=== PATIENT | male | born 1940 ===

== ENCOUNTER 2016-04-27 08:52 | Day surgery (SDC) | payer MEDICARE ==
[2016-04-24 12:06] VITALS: BMI 28.5
[2016-04-27 10:04] VITALS: O2SAT 100
[2016-04-27] MEDS ORDERED: Lidocaine 1% Inj (20ml) ONE (12:38)
[2016-04-27] MEDS ORDERED: Bupivacaine HCl 0.25% PF (10 ml) Inj ONE (12:38)
[2016-04-27] MEDS ORDERED: ceFAZolin IV 1 gm in Dextrose 50 ML IVPB ONE (12:38)
[2016-04-27] MEDS ORDERED: Lactated Ringer's 1,000 ML IV ONE (12:40)
[2016-04-27] MEDS ORDERED: Bacitracin Ointment 30 GM TUBE ONE (13:04)
--- NOTE | 2016-04-27 13:58 | OP ---
PROCEDURE DATE: 04/27/2016 PREOPERATIVE DIAGNOSIS: Necrotic mass of the index finger with ischemia and ulcer of the right middl e finger. POSTOPERATIVE DIAGNOSIS: Necrotic mass of the index finger with ischemia and ulcer of the right midd le finger. PROCEDURE PERFORMED: Excision of necrotic mass, right index finger and a debridement of ulcer of rig ht middle finger. SURGEON: Dr. Ware ANESTHESIA: General. ESTIMATED BLOOD LOSS: 40 mL. POSTOPERATIVE CONDITION: Stable. INDICATIONS FOR SURGERY: This is a 75-year-old male who presented with ischemic lesions of the right hand and taken to the OR for debridement and will undergo postoperative workup for embolic phenomena . PROCEDURE: Taken to the operating room, placed in the supine position. Local block ____ administere d to the index and middle fingers and the necrotic mass at the distal aspect of the middle finger was completely excised via elliptical incision and partial tissue transfer closure. The central portion of the wound was packed open with a gauze dressing. The middle finger was debrided and bleeding was controlled using the Bovie and an exposed digital vessel was repaired. The wound was irrigated with saline. The wounds were dressed sterilely. The patient tolerated procedure well, returned to [facility] in stable condition. Beto Ware MD cc: [id number] TT: 04/27/2016 13:58:05 sn
[2016-04-27 15:15] VITALS: BP 109/71; PULSE 69; RESP 15; TEMP 97.8
--- NOTE | 2016-05-03 23:11 | CARD ---
APPROVED REPORT EXAM: Two-dimensional and M-mode echocardiogram with Doppler and color Doppler. Other Information Quality : AverageRhythm : NSR INDICATION [facility] M-Mode DIMENSIONS RVDd1.48 (2.1-3.2cm)Left Atrium (MM)4.76 (2.5-4.0cm) IVSd0.90 (0.7-1.1cm)Aortic Root2.66 (2.2-3.7cm) LVDd5.66 (4.0-5.6cm)Aortic Cusp Exc.1.91 (1.5-2.0cm) PWd0.98 (0.7-1.1cm)FS (%) 37 % LVDs3.59 (2.0-3.8cm)LVEF (%)66 (>50%) Aortic Valve AoV Peak Yunqcuny661.0cm/Farooq Peak GR.9mmHg Mitral Valve MV E Iilzkerd67.5cm/sMV A Jplfaerf723.0cm/sE/A ratio0.7 TDI E/Lateral E'0.0E/Medial E'0.0 Tricuspid Valve TR Peak Patixhyr805sc/sTR Peak Gr.[id number] LEFT VENTRICLE The left ventricle is normal size. There is normal left ventricular wall thickness. Left ventricle systolic function is normal. The Ejection Fraction is 65-70%. There is normal LV segmental wall motion. Tissue Doppler imaging reveals abnormal left ventricular diastolic dysfunction. RIGHT VENTRICLE The right ventricle is normal size. There is normal right ventricular wall thickness. The right ventricular systolic function is normal. ATRIA The left atrium is mildly dilated. The right atrium size is normal. The interatrial septum is intact with no evidence for an atrial septal defect. AORTIC VALVE The aortic valve is normal in structure. No aortic regurgitation is present. There is no aortic valvular stenosis. There is no aortic valvular vegetation. MITRAL VALVE The mitral valve is normal in structure. There is no evidence of mitral valve prolapse. There is no mitral valve stenosis. Mitral regurgitation is mild. TRICUSPID VALVE The tricuspid valve is normal in structure. There is trace to mild tricuspid regurgitation. Right ventricular systolic pressure is estimated at 30-40 mmHg. There is mild pulmonary hypertension. There is no tricuspid valve prolapse or vegetation. There is no tricuspid valve stenosis. PULMONIC VALVE The pulmonic valve is not well visualized. There is no pulmonic valvular regurgitation. GREAT VESSELS The aortic root is normal in size. PERICARDIAL EFFUSION There is no significant pericardial effusion. <Conclusion> Left ventricle systolic function is normal. The Ejection Fraction is 65-70%. Diastolic dysfunction. No aortic regurgitation is present. Mitral regurgitation is mild. There is trace to mild tricuspid regurgitation. There is mild pulmonary hypertension. There is no pulmonic valvular regurgitation.
== END 2016-04-27 14:49 | disposition home or self-care (01) ==
LOC: C.SDS 08:52
PROVIDERS: ATTEND Surgery
DX: I96 Gangrene, not elsewhere classified (principal); L98.499 Non-pressure chronic ulcer of skin of other sites with unspecified severity; L03.011 Cellulitis of right finger
CPT/HCPCS: 11042; 26160; 87070; 87181; 88304; 93306; J0690; J7120